=== PATIENT | male | born 1945 | race Caucasian/White ===

== ENCOUNTER → 2016-07-12 | Outpatient (CLI) | payer MEDICARE, MEDICAID ==
[~2016-07-12] MED LIST: ACET-2723 PO; BENZ1TAB7 PO; CHOL100047 PO; LORA1TAB3 PO; MAGN400O4 PO; MELO-273 PO; PROM12.510 PO; QUET50TA PO; SERT50TA12 PO; mylanta PO
--- NOTE | 2016-07-12 14:44 | STEVAL ---
Eval Subjective and History Date/Time of Eval DATE: 07/12/16 TIME: 14:16 Medical Diagnosis Oropharyngeal dysphagia (R13.12) Treatment Order: Assessment Orientations: Alert, Cooperative Primary Complaint: difficulty swallowing Pain: No Date of Onset of Primary Com: 05/17 Prior History of This Problem: Yes (chronic dysphagia) Patient's Goals: Pt was unable to express his goals. Significant Past Medical Hx: PMH: oropharyngeal dysphagia, schizophrenia, bipolar disorder, dementia, GERD w/o esophagitis and extrapyramidal movement disorder. Pt had previous MBSS in 05/17 and was placed on pureed diet with nectar (syrup) thick liquids. Medical History Form Reviewed: Yes Residence Type: Longterm ([place]) Lives With: Prior Functional Status: High risk for aspiration on dysphagia diet Current Functional Status: High risk for aspiration,no change in diet Person(s) Educated: Patient Instruction Understanding Demo: Education unsuccessful Education Comment [employer] educated patient on reasoning for evaluation. Patient was agreeable to evaluation.Results of MBSS were reviewed with pt. He did not demonstrate understanding. Subjective and History Comment: Pt was alert and cooperative but disoriented and confused. Modified Barium Swallow Lateral View Oral Phase : Lateral View Food Presentation: Thin Liquid via Spoon, Thin Liquid via Cup, Syrup liquid via spoon, Pudding via spoon Number Presentations Lat View: 3 Labial Closure: Mild Impairment (poorly coordinated) Bolus Formation Pooling L/R: Moderate Impairment Bolus Formation Under Tongue: No Impairment (WFL) Bolus Formation Scattered Loss: Moderate Impairment A/P Lingual Propulsion Spills: Minimal Impairment A/P Lingual Propulsion Delay: Moderate Impairment Lingual Movement: Moderate Impairment (reduced coordination, poor movement of bolus) Residue Clearing: Mild Impairment (on all consistencies) Premature Swallow: Moderate Impairment (thin, nectar consistencies) Other Oral Phase Observations: Pt demonstrated poor lingual coordination. Tongue was elevated when bolus introduced. Tactile stimulation applied to tongue to position it correctly for swallow. Moderate oral residue and oral delay noted on all consistencies. Palatal elevation was moderately reduced during swallow. Thermal stimulation administered to clear oral residue. Pt produced prompt, dry swallow after thermal stim. Swallow Response Delay: Mild Impairment (pudding) Base of Tongue: Moderate Impairment Epiglottic Coverage: Moderate Impairment (thin and nectar consistencies) Laryngeal Elevation: Moderate Impairment Vallecular Retention Clearing: Mild Impairment Pharyn.Wall Residue Clearing: Minimal Impairment Compensatory Strategies: Secondary Swallow, Other (thermal stimulation) Other Pharyngeal Phase Observ.: Pt demonstrated poor oral control of bolus on thin and syrup consistencies. Trace aspiration was seen on 1/3 thin swallows and 1/3 syrup swallows. Base of tongue was weak with premature swallow on thin and nectar consistencies. Laryngeal penetration was seen on 2/3 thin swallows and 3/3 on nectar. Secondary swallow was partially effective in clearing pharyngeal residue. Moderate residue was seen in valleculae after dry swallow. Thermal stimulation was applied to tongue and dry swallow produced within 2 seconds. A/P Test Performed in standing A/P View Food Presentation: Thin Liquid via Spoon, Thin Liquid via Cup, Syrup liquid via spoon, Pudding via spoon Number Presentations A/P View: 2 A/P View Vocal Cord Function: Fair A/P View Residue Found In: Valleculae Right (mild bilateral vallecular residue) , Valleculae Left, Pyriform Sinus Right (minimal), Pyriform Sinus Left (minimal ) A/P View Esophogeal Function: Slowed Clearing Esophogeal Phase Impressions: Minimal Impairment Esophoegeal Phase Summary: Delayed clearing of upper esophagus was seen on pudding consistecy. Evaluation Start Time: 13:40 Evaluation Stop Time: 14:10 Assessment/Plan of Care Speech Therapy Impressions: Pt demonstrated poor lingual coordination. Tongue was elevated when bolus introduced. Tactile stimulation applied to tongue to position it correctly for swallow. Moderate oral residue and oral delay noted on all consistencies. Palatal elevation was moderately reduced during swallow. Thermal stimulation administered to clear oral residue. Pt demonstrated poor oral control of bolus on thin and syrup consistencies. Trace aspiration was seen on 1/3 thin swallows and 1/3 syrup swallows. Base of tongue was weak with premature swallow on thin and nectar consistencies. Laryngeal penetration was seen on 2/3 thin swallows and 3/3 on nectar. Secondary swallow was partially effective in clearing pharyngeal residue. Moderate residue was seen in valleculae after dry swallow. Thermal stimulation was applied to tongue and dry swallow produced within 2 seconds. Pt produced prompt, dry swallow after thermal stim. Delayed clearing of upper esophagus was seen on pudding consistecy. evaluation with recommendations ST Treatment Plan: Evaluation Only ST Treatment Plan Frequency: N/A Treatment Plan Duration: N/A Plan of Care Comment Pt is a resident of [facility]. Recommend follow up with [employer] at [place] and continuation of pureed diet with syrup/nectar thick liquids. He may benefit from thermal stimulation. Date of Visit 07/12/16 Time Visit Began: 13:40 Time Visit Ended: 14:10 ST Assess/Plan of Care: ST Treatment Charge: MBSS Minutes of Individual Therapy: 30 GCODE Swallowing: G8996 - current Severity Modifier: CK - 40-59% Swallowing: G8997 - goal Severity Modifier: CK - 40-59% Swallowing: G8998 - d/c Severity Modifier: CK - 40-59% MARKOS VERMA MS CCC-[employer] Jul 12, 2016 14:20
--- NOTE | 2016-07-12 16:10 | DI ---
Indication:ITS.REASON: R13.19 DYSPHAGIA Procedure:MODIFIED BAR. SWALLOW STUDY MODIFIED BAR. SWALLOW STUDY: Videofluoroscopy was performed in conjunction with a delivery representative from speech pathology and a separate report and recommendations will be provided. Varying gradations of barium from thin to solid were administered. Aspiration was visualized with thin and nectar consistencies of barium. On the AP view the bolus showed no obvious preference for either side. Impression: Aspiration with thin and nectar consistencies. Please see the speech pathology report for additional details and recommendations. Fluoroscopy dose: 12.73 mGy (Cumulative air kerma) Manjinder Heath RPA/DAVID performed this under my direct supervision. .
== END ==
LOC: IMA 13:13
PROVIDERS: ATTEND Family Medicine
DX: R93.3 Abnormal findings on diagnostic imaging of other parts of digestive tract (principal); R13.19 Other dysphagia; R13.12 Dysphagia, oropharyngeal phase
CPT/HCPCS: 74230; 92611; G8996; G8997; G8998

== ENCOUNTER 2017-04-04 12:30 | Observation (INO) ==
--- NOTE | 2017-04-04 13:46 | XRay Report ---
Indication: dyspnea PROCEDURE: XR chest 2V: Encounter: Initial Comparison: None. Findings: The examination is slightly expiratory in nature. The lungs are clear. There is no focal opacity to suggest atelectasis or pneumonia. No mediastinal or hilar adenopathy. No pleural effusion. There is no significant tortuosity of the descending thoracic aorta. There is no significant degenerative changes of the thoracic spine. IMPRESSION: Negative expiratory exam. .
--- OUTSIDE RECORDS SUMMARY | 2017-04-04 13:52 | External Medical Summary | Clinical Summary ---
:1945 Author Organization [facility] Address [address] [place] [address] Phone Allergies Not on File Current Medications Not on file Active Problems Not on file Social History Tobacco Use Types Packs/Day Years Used Date Never Assessed Sex Assigned at Date Recorded Not on file Plan of Treatment Health Maintenance Due Date Last Done Comments Hepatitis C Screening 1945 DTaP,Tdap,and Td Vaccines (1 - Tdap) 1963 Colon Cancer Screening 1994 Zoster Vaccine (#1) 2004 Pneumo-Adult (1 of 2 - PCV13) 2009 Influenza Vaccine (#1) 2016 Results Not on filefrom Last 3 Months
--- NOTE | 2017-04-04 14:51 | Emergency Department Report ---
Dizziness HPI - General Chief Complaint: Dizziness Stated Complaint: irratic pulse,hypothermic Time Seen by Provider: 04/04/17 12:34 Source: patient Mode of arrival: EMS Limitations: altered mental status (dementia) - History of Present Illness HPI Narrative: He is brought to ER today for c/o dizziness, erratic heart rate, and hypothermia. He is a resident at [facility]. They had found his temp to be 92 but he is normothermic upon arrival to ER and alert. He has history of dementia and does answer questions appropriately but does go on a tangent in the conversation at times. He does report feeling dizzy this morning but denies any at this time. Denies any pain aside from his right foot which he has had a recent procedure on. MD complaint: dizziness Onset (ago): hour(s) Timing: gradual onset Description: "room spinning" Severity: moderate Associated symptoms: other (reported to be hypothermic per NH but initial temp was 98.4) - Related Data Home Medications Medication Instructions Recorded Confirmed Benztropine Mesylate 1 mg PO BID #0 tab 02/05/15 04/04/17 Meloxicam 7.5 mg PO BID #0 tab 02/05/15 04/04/17 Acetaminophen [Acetaminophen Extra 1,000 mg PO TID 04/04/17 04/04/17 Strength] Amino Acids/Protein Hydrolys 30 ml PO BID 04/04/17 04/04/17 [Pro-Stat Profile Liquid] LORazepam [Ativan] 0.5 mg PO TID 04/04/17 04/04/17 Lactose-Reduced Food [Nutritional 237 ml PO TID 04/04/17 04/04/17 Shake] Lisinopril [Prinivil] 5 mg PO DAILY 04/04/17 04/04/17 Multivit-Min/Iron Fum/Folic AC 1 tab PO DAILY 04/04/17 04/04/17 [Kgrvn-Csbjjfb-Vpqznszn Tablet] Omeprazole [Prilosec] 20 mg PO DAILY 04/04/17 04/04/17 PARoxetine HCl [Paxil] 20 mg PO DAILY 04/04/17 04/04/17 Peg 3350 238 G Bottle [Miralax] 17 gm PO DAILY 04/04/17 04/04/17 Quetiapine Fumarate [Quetiapine 200 mg PO HS 04/04/17 04/04/17 Fumarate ER] Quetiapine Fumarate [Seroquel] 100 mg PO BID 04/04/17 04/04/17 Tamsulosin [Flomax] 0.4 mg PO DAILY 04/04/17 04/04/17 Allergies Allergy/AdvReac Type Severity Reaction Status Date / Time No Known Allergies Allergy Verified 04/04/17 12:36 Review of Systems Constitutional: Denies: fever, chills, weakness ENT: Denies: ear pain, throat pain, congestion Cardiovascular: Denies: chest pain, palpitations, dyspnea on exertion, edema Respiratory: Denies: cough, dyspnea, wheezes Gastrointestinal: Denies: abdominal pain, nausea, vomiting, diarrhea Integumentary: Denies: rash Neurological: Reports: vertigo. Denies: headache, weakness, numbness, paresthesias PFS Patient Stated Medical History Dementia Yes Hypertension Yes Gastroesophageal Reflux Yes Disease Osteoarthritis Yes Bipolar Disorder Yes Depression Yes Schizophrenia Yes Clinic Medical History (Last Reviewed 02/09/17 @ 13:48 by Beth Horn MD) Vitamin B deficiency (Acute Medical) Extrapyramidal and movement disorder (Acute Medical) Osteoarthritis (Acute Medical) Vitamin D deficiency, unspecified (Acute Medical) Dysphagia (Acute Medical) Constipation (Acute Medical) Anxiety (Acute Medical) GERD (gastroesophageal reflux disease) (Acute Medical) Essential (primary) hypertension (Acute Medical) Major depressive disorder, recurrent, moderate (Acute Medical) Dementia in other diseases classified elsewhere with behavioral disturbance ( Acute Medical) Bipolar disorder (Acute Medical) Schizophrenia, unspecified (Acute Medical) Surgical History: Unknown - pt poor historian; unknown per [facility] (nurse says no surgeries since pt has been at [facility] for around 7 years) - spoke with her on 12/30/16 Family History: Family History (Last Reviewed 02/09/17 @ 13:48 by Beth Horn MD) Other Unknown family medical history - Social History Smoking status: Current every day smoker Physical Exam - Limitations Limitations: no limitations - General General appearance: alert, in no apparent distress - Normal Exams: Eyes:: Pupils are PERRLA w/ EOMI, No scleral icterus, irritation, or foreign bodies noted ENMT:: No facial trauma, nasal exudates, pharyngeal erythema, or exudates are noted Neck:: Full range of motion, without adenopathy, JVD, bruits or thyromegaly Chest/Respirations:: Clear all lo, with good airflow, and symmetry bilaterally Cardiovascular:: Regular rate and rhythm, without murmur or gallop, Pulses 2+ all extremities, capillary refill, <2 seconds all extremities Abdomen:: Bowel sounds positive, soft, non-tender, non-distended, no hepatosplenomegaly, masses or bruits noted Lymphatic:: No lymphadenopathy, or lymphedema noted Integumentary:: No rashes, hives, or bruising noted Neurological:: Patient is alert Psychiatric:: Patient exhibits, appropriate attention, emotion and affect Course Vital Signs Temperature 98.4 F 04/04/17 12:50 Pulse Rate 92 04/04/17 12:50 Respiratory Rate 20 04/04/17 12:50 Blood Pressure 114/58 04/04/17 12:50 Pulse Oximetry 93 04/04/17 12:50 Temperature 98.4 F 04/04/17 12:50 Pulse Rate 94 04/04/17 16:00 Respiratory Rate 20 04/04/17 16:00 Blood Pressure 143/67 H 04/04/17 16:00 Pulse Oximetry 95 04/04/17 16:00 Dizziness - MDM Narrative Medical decision making narrative: Labs today are negative. Did note on EKG that he appears to be in heart block. Did consult with Dr Chaves who agrees that patient is in 2nd degree block. He has an old EKG from 2015 on chart that is without a block at that time. Does recommend that patient come in for observation and does request admission to hospitalist service. Spoke with Dr Junior who will admit at this time. - Differential Diagnosis Likely: benign paroxysmal positional vertigo, orthostatic hypotension - Lab Data Attestation: I reviewed the patient's lab results. Result diagrams: 04/04/17 13:11 04/04/17 13:11 Lab Results 04/04/17 04/04/17 04/04/17 Range/Units 13:11 13:11 13:11 WBC 8.6 (4.5-11.0) T/MM3 RBC 4.14 L (4.50-5.90) M/MM3 Hgb 12.9 L (13.5-17.5) GM/DL Hct 39.0 L (41-53) % MCV 94.2 (80-100) UM3 MCH 31.2 (26-34) UUG MCHC 33.1 (31-37) GM/DL RDW Std Deviation 42.0 (36.9-50.2) FL Plt Count 164 (130-400) T/MM3 MPV 9.7 (9.4-12.4) UM3 Immature Gran % (Auto) 0.1 (0.0-0.5) % Neut % (Auto) 72.5 H (33-66) % Lymph % (Auto) 18.0 L (23-45) % [place] % (Auto) 7.0 (0-9.0) % Eos % (Auto) 1.9 (0-4) % Baso % (Auto) 0.5 (0-2) % Neut # (Auto) 6.2 (1.8-7.7) T/MM3 Lymph # (Auto) 1.5 (1-4.8) T/MM3 [place] # (Auto) 0.6 (0-0.8) T/MM3 Eos # (Auto) 0.2 (0-0.5) T/MM3 Baso # (Auto) 0.0 (0-0.2) T/MM3 Abs Immat Gran (auto) 0.01 (0.00-0.03) T/MM3 Turbidity < 20 (0-20) Sodium 132 L (134-144) MEQ/L Potassium 4.7 (3.6-5) MEQ/L Chloride 98 (98-107) MEQ/L Carbon Dioxide 25 (22-30) MEQ/L Anion Gap 9 (5-15) MEQ/L BUN 27.0 H (9-20) MG/DL Creatinine 1.2 (0.8-1.5) MG/DL GFR Calculation 60 BUN/Creatinine Ratio 23 (6-26) RATIO Glucose 87 (75-110) MG/DL Calculated Osmolality 259 L (261-280) MOSM/KG Calcium 8.6 (8.4-10.2) MG/DL Total Bilirubin 0.40 (0.20-1.30) MG/DL Icterus Index < 2 (0-7) AST 18 (17-59) U/L ALT 28 (21-72) U/L Alkaline Phosphatase 62 (38-126) U/L Troponin I 0.017 (0-0.12) ng/ml Total Protein 7.1 (6.3-8.2) G/DL Albumin 4.2 (3.5-5.0) G/DL Globulin 2.9 (2.4-3.6) G/DL Albumin/Globulin Ratio 1.4 (1.1-2.2) RATIO Plasma Lactate 1.2 (0.6-2.2) MMOL/L Procalcitonin < 0.05 NG/ML Specimen Hemolysis < 15 (0-25) Ur Collection Type Urine Color (YELLOW) Urine Clarity Urine pH (5.0-8.0) Ur Specific Hannah (1.015-1.025) Urine Protein (NEGATIVE) Urine Glucose (UA) (NEGATIVE) Urine Ketones (NEGATIVE) Urine Occult Blood (NEGATIVE) Urine Nitrate (NEGATIVE) Urine Bilirubin (NEGATIVE) Urine Urobilinogen (NORMAL) EU/DL Ur Leukocyte Esterase (NEGATIVE) Urinalysis Comment 04/04/17 Range/Units 14:22 WBC (4.5-11.0) T/MM3 RBC (4.50-5.90) M/MM3 Hgb (13.5-17.5) GM/DL Hct (41-53) % MCV (80-100) UM3 MCH (26-34) UUG MCHC (31-37) GM/DL RDW Std Deviation (36.9-50.2) FL Plt Count (130-400) T/MM3 MPV (9.4-12.4) UM3 Immature Gran % (Auto) (0.0-0.5) % Neut % (Auto) (33-66) % Lymph % (Auto) (23-45) % [place] % (Auto) (0-9.0) % Eos % (Auto) (0-4) % Baso % (Auto) (0-2) % Neut # (Auto) (1.8-7.7) T/MM3 Lymph # (Auto) (1-4.8) T/MM3 [place] # (Auto) (0-0.8) T/MM3 Eos # (Auto) (0-0.5) T/MM3 Baso # (Auto) (0-0.2) T/MM3 Abs Immat Gran (auto) (0.00-0.03) T/MM3 Turbidity (0-20) Sodium (134-144) MEQ/L Potassium (3.6-5) MEQ/L Chloride (98-107) MEQ/L Carbon Dioxide (22-30) MEQ/L Anion Gap (5-15) MEQ/L BUN (9-20) MG/DL Creatinine (0.8-1.5) MG/DL GFR Calculation BUN/Creatinine Ratio (6-26) RATIO Glucose (75-110) MG/DL Calculated Osmolality (261-280) MOSM/KG Calcium (8.4-10.2) MG/DL Total Bilirubin (0.20-1.30) MG/DL Icterus Index (0-7) AST (17-59) U/L ALT (21-72) U/L Alkaline Phosphatase (38-126) U/L Troponin I (0-0.12) ng/ml Total Protein (6.3-8.2) G/DL Albumin (3.5-5.0) G/DL Globulin (2.4-3.6) G/DL Albumin/Globulin Ratio (1.1-2.2) RATIO Plasma Lactate (0.6-2.2) MMOL/L Procalcitonin NG/ML Specimen Hemolysis (0-25) Ur Collection Type Urine, clean catch Urine Color Yellow (YELLOW) Urine Clarity Clear Urine pH 5.0 (5.0-8.0) Ur Specific Hannah <=1.005 L (1.015-1.025) Urine Protein Negative (NEGATIVE) Urine Glucose (UA) Negative (NEGATIVE) Urine Ketones Negative (NEGATIVE) Urine Occult Blood Negative (NEGATIVE) Urine Nitrate Negative (NEGATIVE) Urine Bilirubin Negative (NEGATIVE) Urine Urobilinogen 0.2 (NORMAL) EU/DL Ur Leukocyte Esterase Negative (NEGATIVE) Urinalysis Comment Microscopic not ind. - Radiology Data Attestation: I reviewed the patient's radiology results. Date of Exam: 04/04/17 Ordering Provider: Varsha Chamberlain APRN Type of Exam(s): XR chest 2V Reason for Exam(s): dyspnea Indication: dyspnea PROCEDURE: XR chest 2V: Encounter: Initial Comparison: None. Findings: The examination is slightly expiratory in nature. The lungs are clear. There is no focal opacity to suggest atelectasis or pneumonia. No mediastinal or hilar adenopathy. No pleural effusion. There is no significant tortuosity of the descending thoracic aorta. There is no significant degenerative changes of the thoracic spine. IMPRESSION: Negative expiratory exam. . Disposition Clinical Impression: Second degree AV block Disposition: To [facility] Prescriptions: No Action Benztropine Mesylate 1 mg PO BID #0 tab Meloxicam 7.5 mg PO BID #0 tab Quetiapine Fumarate [Seroquel] 100 mg PO BID Amino Acids/Protein Hydrolys [Pro-Stat Profile Liquid] 30 ml PO BID Quetiapine Fumarate [Quetiapine Fumarate ER] 200 mg PO HS PARoxetine HCl [Paxil] 20 mg PO DAILY Multivit-Min/Iron Fum/Folic AC [Iouqk-Nqaubfe-Melzpdjl Tablet] 1 tab PO DAILY Peg 3350 238 G Bottle [Miralax] 17 gm PO DAILY Tamsulosin [Flomax] 0.4 mg PO DAILY Acetaminophen [Acetaminophen Extra Strength] 1,000 mg PO TID Lactose-Reduced Food [Nutritional Shake] 237 ml PO TID LORazepam [Ativan] 0.5 mg PO TID Omeprazole [Prilosec] 20 mg PO DAILY Lisinopril [Prinivil] 5 mg PO DAILY Referrals: Adelaida Oliveira MD [Family Provider] - Time of Disposition: 16:31 - Seen By: midlevel
[2017-04-04 17:42] VITALS: BMI 32.0
--- NOTE | 2017-04-04 17:50 | History & Physical Report ---
History of Present Illness Date: 04/04/17 Chief complaint: dizzy HPI: Misael West is a 71 y/o male, resident of [facility], who was transported [place] [facility] for dizziness, irregular HR, and low temperature. He has a history of dementia and is an unreliable historian - HPI was obtained per ED records. Hypothermia was documented at [address] [facility] but temp was normal on arrival to the ED. He was found to be in 2nd deg heart block - Dr. Chaves was consulted and recommended admission under the hospitalist dept. Labs showed mild anemia (hgb 12.9), mild hyponatremia (132). CXR was negative. Misael was seen in his room on the medical floor. He has extrapyramidal movements of both upper ext and his jaw. He c/o left jaw/ear pain and reports having a hx of a surgery to this area. He is a poor historian and cannot recall exactly what happened earlier today, but agrees to having some dizziness. He has a wound to his right foot. He states that he uses a walker to ambulate. He denies chest pain, dyspnea, fever, cough or cold. He denies recent illnesses. He reports eating a normal-consistency diet and denies problems swallowing. He denies abdominal pain or GI or urinary symptoms that might be associated with his dizziness. Review of Systems ROS unobtainable: due to mental status (unreliable historian) PFSH Schizophrenia Bipolar disorder Depression Anxiety extrapyramidal disorder Dementia HTN GERD chronic pain dysphagia vitamin D deficiency OA BPH obesity BMI 32.0 Surgical History: Hernia surgery Family History: Unknown family medical history - Social History Smoking status: Former smoker Alcohol intake frequency: former alcohol drinker Current residence: [place]irement Medications Home Medications Medication Instructions Recorded Confirmed Type Benztropine Mesylate 1 mg PO BID #0 tab 02/05/15 04/04/17 History Meloxicam 7.5 mg PO BID #0 tab 02/05/15 04/04/17 History Acetaminophen [Acetaminophen Extra 1,000 mg PO TID 04/04/17 04/04/17 History Strength] Amino Acids/Protein Hydrolys 30 ml PO BID 04/04/17 04/04/17 History [Pro-Stat Profile Liquid] LORazepam [Ativan] 0.5 mg PO TID 04/04/17 04/04/17 History Lactose-Reduced Food [Nutritional 237 ml PO TID 04/04/17 04/04/17 History Shake] Lisinopril [Prinivil] 5 mg PO DAILY 04/04/17 04/04/17 History Multivit-Min/Iron Fum/Folic AC 1 tab PO DAILY 04/04/17 04/04/17 History [[id number]-[id number]-Dpkslqcc Tablet] Omeprazole [Prilosec] 20 mg PO DAILY 04/04/17 04/04/17 History PARoxetine HCl [Paxil] 20 mg PO DAILY 04/04/17 04/04/17 History Peg 3350 238 G Bottle [Miralax] 17 gm PO DAILY 04/04/17 04/04/17 History Quetiapine Fumarate [Quetiapine 200 mg PO HS 04/04/17 04/04/17 History Fumarate ER] Quetiapine Fumarate [Seroquel] 100 mg PO BID 04/04/17 04/04/17 History Tamsulosin [Flomax] 0.4 mg PO DAILY 04/04/17 04/04/17 History Allergies Allergy/AdvReac Type Severity Reaction Status Date / Time No Known Allergies Allergy Verified 04/04/17 12:36 Exam Vital Signs: Temperature 97.4 F 04/04/17 17:41 Pulse Rate 84 04/04/17 17:41 Respiratory Rate 16 04/04/17 17:41 Blood Pressure 102/67 04/04/17 17:41 Pulse Oximetry 99 04/04/17 17:41 Height/Weight/BMI: Height 1.73 m Weight 95.5 kg Body Mass Index 32.0 - Constitutional Present: no acute distress, obese - Routine HEENT Exam Head: Present: normocephalic Eye: Present: PERRL. Absent: conjunctival icterus, scleral injection ENT: Present: mucous membranes dry. Absent: dentition normal (dentures) - Routine Neck Exam Present: supple - Routine Respiratory Exam Present: CTA bilaterally - Routine Cardiovascular Exam Present: irregular rhythm - Routine Abdominal Exam Present: soft, normoactive bowel sounds, non distended, non tender - Routine Extremities Exam Present: no edema, pulses intact - Routine Skin Exam Present: warm, wounds (right foot - head of 1st MT) - Routine Neurological Exam Present: alert, moving all extremities, vision grossly intact, hearing grossly intact, tremors (EPS) - Routine Psychiatric Exam Present: cooperative Results - Labs CBC & Chem 7: 04/04/17 13:11 04/04/17 13:11 Assessment and Plan (1) Second degree AV block Current visit: Yes Status: Acute Assessment and Plan: ADMISSION DIAGNOSES Symptomatic 2nd degree heart block Hyponatremia, POA Normocytic anemia (mild) - suspect chronic Comorbid conditions Schizophrenia, Bipolar disorder, Depression, Anxiety extrapyramidal disorder Dementia HTN GERD Chronic pain Dysphagia Vitamin D deficiency OA BPH Right foot wound Obesity with BMI 32.0 PLAN Admit, observation status, under the hospitalist service. PCP: Dr. Oliveira. Code status: DNR. 2nd degree heart block -tele, trend trop -c/o left jaw pain - uncertain if this is angina equivalent -Dr. Chaves consulted -check mg and TSH Hyponatremia -NS @ 75 ml/hr Psych d/o -cont home meds -AV block not a common adverse reaction to current meds Right foot wound -wound consult [facility] home & [facility] records reviewed - very little new information. 04/04/17 - Sandi Have independently interviewed and examined pt. Chart reviewed. Case discussed with ED provider and my [employer]. Care plan developed with my supervision; agree with above. Presents to ED for evaluation of dizziness and erratic HR. Patient reports nursing said his heart was too fast and then too slow. Not feeling palpitations , but does note some SOA and congestion. Has not been feeling well in general- like he's coming down with something. Appetite has been fair. Does feel thirsty and has dry mouth-reports he 'drinks a lot and pees a lot.' Lab in ED remarkable for slight hyponatremia. EKG showing 2nd degree AV block. Placed in OBS for further cardiac evaluation and treatment. Lungs: decreased CV: regular AB: soft obese nt MSE: awake alert Plan: OBS. Tele. Serial enzymes. Cardiac consult. NS at 75cc/hr due to hyponatremia. Continue home medications. Monitor lab. SCD for DVT prevention. DVT Prophylaxis: SCD's GI Prophylaxis: other (Prilosec) Resuscitation Status: Do Not Resuscitate Hospital Course Summary Disclaimer: The visit summary below is not to be considered part of the above Progress Note. Hospital Course: 04/04/17 18:38 ADMISSION DIAGNOSES Symptomatic 2nd degree heart block Hyponatremia, POA Normocytic anemia (mild) - suspect chronic Comorbid conditions Schizophrenia, Bipolar disorder, Depression, Anxiety extrapyramidal disorder Dementia HTN GERD chronic pain dysphagia vitamin D deficiency OA BPH Right foot wound PLAN Admit, observation status, under the hospitalist service. PCP: Dr. Oliveira. Code status: DNR. 2nd degree heart block -tele, trend trop -c/o left jaw pain - uncertain if this is angina equivalent -Dr. Chaves consulted -check mg and TSH Hyponatremia -NS @ 75 ml/hr Psych d/o -cont home meds -AV block not a common adverse reaction to current meds Right foot wound -wound consult [facility] home & [facility] records reviewed - very little new information.
[2017-04-04] MEDS: NS 1,000 ML IV SCH (17:53)
[2017-04-04] MEDS: SALINE FLUSH 10ml SYRINGE IVF PRN (17:53)
[2017-04-04] MEDS: QUETIAPINE 100 MG TABLET PO SCH (19:37)
[2017-04-04] MEDS: LORazepam 0.5 MG TABLET PO SCH (21:29)
[2017-04-04] MEDS: ACETAMINOPHEN 500 MG TABLET PO SCH (21:29)
[2017-04-04 23:44] VITALS: RESP 18; O2SAT 95
[2017-04-05] MEDS: SALINE FLUSH 10ml SYRINGE IVF PRN (05:30)
[2017-04-05] MEDS ORDERED: OMEPRAZOLE 20 MG CAPSULE PO SCH (06:30)
[2017-04-05 07:26] VITALS: BP 149/75; TEMP 97
[2017-04-05] MEDS: NS 1,000 ML IV SCH (08:51)
[2017-04-05] MEDS: QUETIAPINE 100 MG TABLET PO SCH (08:51)
[2017-04-05] MEDS: ACETAMINOPHEN 500 MG TABLET PO SCH ×2 (08:51→14:13)
[2017-04-05] MEDS: LORazepam 0.5 MG TABLET PO SCH ×2 (08:52→14:13)
[2017-04-05 08:53] VITALS: PULSE 87
[2017-04-05] MEDS ORDERED: LISINOPRIL 5 MG TABLET PO SCH (09:00)
[2017-04-05] MEDS ORDERED: TAMSULOSIN 0.4 MG CAPSULE PO SCH (09:00)
[2017-04-05] MEDS ORDERED: POLYETHYL GLYCOL 3350 17gm PACKET PO SCH (09:00)
[2017-04-05] MEDS ORDERED: PAROXETINE 20 MG TABLET PO SCH (09:00)
--- NOTE | 2017-04-05 09:22 | Cardiology Consult Note ---
<Kathie Dominguez - Last Filed: 04/05/17 13:50> History of Present Illness Consult date: 04/05/17 Requesting physician: Alen Junior Chief complaint: arrhythmia History of present illness: Jude is a 71 year old male, resident of [facility], who was evaluated in the ED yesterday for dizziness, irregular HR, and low temperature. He has a history of dementia and is an unreliable historian. Upon arrival his temperature was normal, and was found to be in 2nd deg heart block - Dr. Chaves was consulted and recommended admission under the hospitalist dept. He is examined in his room on the Medical unit. He reports dizziness and feeling like he might pass out. He denies chest pain or pressure, palpitations, skipping or missing beats, or dyspnea. Review of Systems - Constitutional Constitutional: Absent: chills, fatigue, fever(s) - EENMT Eyes: Absent: change in vision Balance: Absent: vertigo Mouth/Throat: Absent: sore throat - Cardiovascular Cardiovascular: Present: syncope (near). Absent: chest pain, palpitations, edema Rhythm: Absent: abnormal rhythm - Respiratory Respiratory: Absent: cough, dyspnea, dyspnea on exertion - Gastrointestinal Gastrointestinal: Absent: abdominal pain, constipation, diarrhea, nausea, vomiting - Genitourinary Genitourinary: Absent: dysuria - Integumentary/Breasts Integumentary: Absent: rash - Neurological Neurological: Present: dizziness - Endocrine Endocrine: Absent: palpitations PFSH Patient Stated Medical History Dementia Yes Hypertension Yes Gastroesophageal Reflux Yes Disease Osteoarthritis Yes Bipolar Disorder Yes Depression Yes Schizophrenia Yes Clinic Medical History (Last Reviewed 02/09/17 @ 13:48 by Beth Horn MD) Second degree AV block (Acute Medical) Vitamin B deficiency (Acute Medical) Extrapyramidal and movement disorder (Acute Medical) Osteoarthritis (Acute Medical) Vitamin D deficiency, unspecified (Acute Medical) Dysphagia (Acute Medical) Constipation (Acute Medical) Anxiety (Acute Medical) GERD (gastroesophageal reflux disease) (Acute Medical) Essential (primary) hypertension (Acute Medical) Major depressive disorder, recurrent, moderate (Acute Medical) Dementia in other diseases classified elsewhere with behavioral disturbance ( Acute Medical) Bipolar disorder (Acute Medical) Schizophrenia, unspecified (Acute Medical) Surgical History: Hernia surgery Family History: Family History (Last Reviewed 02/09/17 @ 13:48 by Beth Horn MD) Other Unknown family medical history - Social History Smoking status: Former smoker Substance use type: does not use Alcohol intake frequency: does not drink Housing: [facility] Household members: none Current occupational status: disabled Current residence: [place] Medications Home Medications Medication Instructions Recorded Confirmed Type Benztropine Mesylate 1 mg PO BID #0 tab 02/05/15 04/04/17 History Meloxicam 7.5 mg PO BID #0 tab 02/05/15 04/04/17 History Acetaminophen [Acetaminophen Extra 1,000 mg PO TID 04/04/17 04/04/17 History Strength] Amino Acids/Protein Hydrolys 30 ml PO BID 04/04/17 04/04/17 History [Pro-Stat Profile Liquid] Lactose-Reduced Food [Nutritional 237 ml PO TID 04/04/17 04/04/17 History Shake] Lisinopril [Prinivil] 5 mg PO DAILY 04/04/17 04/04/17 History Multivit-Min/Iron Fum/Folic AC 1 tab PO DAILY 04/04/17 04/04/17 History [[id number]-[id number]-Pddqzwma Tablet] Omeprazole [Prilosec] 20 mg PO DAILY 04/04/17 04/04/17 History PARoxetine HCl [Paxil] 20 mg PO DAILY 04/04/17 04/04/17 History Peg 3350 238 G Bottle [Miralax] 17 gm PO DAILY 04/04/17 04/04/17 History Quetiapine Fumarate [Quetiapine 200 mg PO HS 04/04/17 04/04/17 History Fumarate ER] Tamsulosin [Flomax] 0.4 mg PO DAILY 04/04/17 04/04/17 History Allergies Allergy/AdvReac Type Severity Reaction Status Date / Time No Known Allergies Allergy Verified 04/04/17 12:36 Exam Vital signs: Temperature 97.0 F 04/05/17 07:25 Pulse Rate 87 04/05/17 08:00 Respiratory Rate 18 04/05/17 07:25 Blood Pressure 149/75 H 04/05/17 07:25 Pulse Oximetry 95 04/05/17 07:25 - Constitutional no acute distress, cooperative - Routine HEENT Exam Head: Present: normocephalic ENT: Present: mucous membranes moist - Routine Neck Exam Absent: JVD, carotid bruit - Routine Chest/Breast/Axilla Exam Chest wall: Absent: tenderness - Routine Respiratory Exam Present: CTA bilaterally. Absent: rales, wheezes - Routine Cardiovascular Exam Present: RRR, no murmur. Absent: JVD - Routine Abdominal Exam Present: soft, normoactive bowel sounds - Routine Extremities Exam Present: no edema - Routine Skin Exam Present: intact, dry, warm - Routine Neurological Exam Present: alert, oriented X3 - Routine Psychiatric Exam Present: normal affect Results 04/05/17 04:38 04/05/17 04:38 Cardiac Enzymes 04/04/17 04/05/17 Range/Units 17:26 04:38 Troponin I 0.020 < 0.012 (0-0.12) ng/ml CBC 04/05/17 Range/Units 04:38 WBC 7.4 (4.5-11.0) T/MM3 RBC 4.17 L (4.50-5.90) M/MM3 Hgb 13.0 L (13.5-17.5) GM/DL Hct 39.3 L (41-53) % Plt Count 156 (130-400) T/MM3 Neut # (Auto) 4.6 (1.8-7.7) T/MM3 Lymph # (Auto) 1.9 (1-4.8) T/MM3 Curry # (Auto) 0.7 (0-0.8) T/MM3 Eos # (Auto) 0.2 (0-0.5) T/MM3 Baso # (Auto) 0.0 (0-0.2) T/MM3 Comprehensive Metabolic Panel 04/05/17 Range/Units 04:38 Sodium 138 D (134-144) MEQ/L Potassium 4.3 (3.6-5) MEQ/L Chloride 105 D (98-107) MEQ/L Carbon Dioxide 25 (22-30) MEQ/L BUN 21.0 H (9-20) MG/DL Creatinine 0.9 D (0.8-1.5) MG/DL Glucose 90 (75-110) MG/DL Calcium 8.9 (8.4-10.2) MG/DL Intake and Output 04/04/17 04/05/17 04/05/17 22:59 06:59 14:59 Intake Total 650 / 650 400 / 400 1000 / 1000 Output Total 600 / 900 1900 / 1900 Balance 50 / -250 -1500 / -1500 1000 / 1000 Intake: IV 1000 / 1000 Ns 1,000 ml @ 75 mls/hr 1000 / 1000 IV .[id number] [facility] Rx#: [id number] Oral 650 / 650 400 / 400 Output: Urine 600 / 900 1900 / 1900 Other: Urine Appearance Clear Clear Urine Color Yellow Yellow Urine Odor Normal # Voids 1 # Incontinent Voids 1 Weight 210 lb 8.663 oz 206 lb 12.697 oz Patient Weight 04/06/17 06:59 Weight 206 lb 12.697 oz Laboratory Results - last 24 hr 04/04/17 04/04/17 04/04/17 13:11 13:11 13:11 WBC 8.6 RBC 4.14 L Hgb 12.9 L Hct 39.0 L MCV 94.2 MCH 31.2 MCHC 33.1 RDW Std Deviation 42.0 Plt Count 164 MPV 9.7 Immature Gran % (Auto) 0.1 Neut % (Auto) 72.5 H Lymph % (Auto) 18.0 L Curry % (Auto) 7.0 Eos % (Auto) 1.9 Baso % (Auto) 0.5 Neut # (Auto) 6.2 Lymph # (Auto) 1.5 Curry # (Auto) 0.6 Eos # (Auto) 0.2 Baso # (Auto) 0.0 Abs Immat Gran (auto) 0.01 Turbidity < 20 Sodium 132 L Potassium 4.7 Chloride 98 Carbon Dioxide 25 Anion Gap 9 BUN 27.0 H Creatinine 1.2 GFR Calculation 60 BUN/Creatinine Ratio 23 Glucose 87 Calculated Osmolality 259 L Calcium 8.6 Magnesium Total Bilirubin 0.40 Icterus Index < 2 AST 18 ALT 28 Alkaline Phosphatase 62 Troponin I 0.017 Total Protein 7.1 Albumin 4.2 Globulin 2.9 Albumin/Globulin Ratio 1.4 Plasma Lactate 1.2 Procalcitonin < 0.05 TSH Specimen Hemolysis < 15 Ur Collection Type Urine Color Urine Clarity Urine pH Ur Specific [place] Urine Protein Urine Glucose (UA) Urine Ketones Urine Occult Blood Urine Nitrate Urine Bilirubin Urine Urobilinogen Ur Leukocyte Esterase Urinalysis Comment 04/04/17 04/04/17 04/04/17 14:22 17:26 17:26 WBC RBC Hgb Hct MCV MCH MCHC RDW Std Deviation Plt Count MPV Immature Gran % (Auto) Neut % (Auto) Lymph % (Auto) Curry % (Auto) Eos % (Auto) Baso % (Auto) Neut # (Auto) Lymph # (Auto) Curry # (Auto) Eos # (Auto) Baso # (Auto) Abs Immat Gran (auto) Turbidity Sodium Potassium Chloride Carbon Dioxide Anion Gap BUN Creatinine GFR Calculation BUN/Creatinine Ratio Glucose Calculated Osmolality Calcium Magnesium 2.3 Total Bilirubin Icterus Index AST ALT Alkaline Phosphatase Troponin I 0.020 Total Protein Albumin Globulin Albumin/Globulin Ratio Plasma Lactate 1.2 Procalcitonin TSH 0.75 Specimen Hemolysis < 15 Ur Collection Type Urine, clean catch Urine Color Yellow Urine Clarity Clear Urine pH 5.0 Ur Specific [place] <=1.005 L Urine Protein Negative Urine Glucose (UA) Negative Urine Ketones Negative Urine Occult Blood Negative Urine Nitrate Negative Urine Bilirubin Negative Urine Urobilinogen 0.2 Ur Leukocyte Esterase Negative Urinalysis Comment Microscopic not ind. 04/05/17 04/05/17 04:38 04:38 WBC 7.4 RBC 4.17 L Hgb 13.0 L Hct 39.3 L MCV 94.2 MCH 31.2 MCHC 33.1 RDW Std Deviation 42.3 Plt Count 156 MPV 10.1 Immature Gran % (Auto) 0.3 Neut % (Auto) 61.1 Lymph % (Auto) 25.7 Curry % (Auto) 9.3 H Eos % (Auto) 3.2 Baso % (Auto) 0.4 Neut # (Auto) 4.6 Lymph # (Auto) 1.9 Curry # (Auto) 0.7 Eos # (Auto) 0.2 Baso # (Auto) 0.0 Abs Immat Gran (auto) 0.02 Turbidity < 20 Sodium 138 D Potassium 4.3 Chloride 105 D Carbon Dioxide 25 Anion Gap 8 BUN 21.0 H Creatinine 0.9 D GFR Calculation 83 BUN/Creatinine Ratio 23 Glucose 90 Calculated Osmolality 269 Calcium 8.9 Magnesium Total Bilirubin Icterus Index < 2 AST ALT Alkaline Phosphatase Troponin I < 0.012 Total Protein Albumin Globulin Albumin/Globulin Ratio Plasma Lactate Procalcitonin TSH Specimen Hemolysis < 15 Ur Collection Type Urine Color Urine Clarity Urine pH Ur Specific [place] Urine Protein Urine Glucose (UA) Urine Ketones Urine Occult Blood Urine Nitrate Urine Bilirubin Urine Urobilinogen Ur Leukocyte Esterase Urinalysis Comment - Imaging and Cardiology Echo: pending Imaging & Cardiology Narrative: Date of Exam: 04/04/17 Ordering Provider: Varsha Chamberlain APRN Type of Exam(s): XR chest 2V Reason for Exam(s): dyspnea Indication: dyspnea PROCEDURE: XR chest 2V: Encounter: Initial Comparison: None. Findings: The examination is slightly expiratory in nature. The lungs are clear. There is no focal opacity to suggest atelectasis or pneumonia. No mediastinal or hilar adenopathy. No pleural effusion. There is no significant tortuosity of the descending thoracic aorta. There is no significant degenerative changes of the thoracic spine. IMPRESSION: Negative expiratory exam. 04/05/17 10:02 EKG interpretations - Dysrhythmias Sinus rhythms and dysrhythmias: sinus rhythm Ventricular dysrhythmias: ventricular premature complexes - Blocks, axis, hypertrophy, ST abn AV and intraventricular conduction: 1 AV block Assessment and Plan - Assessment and Plan (1) Essential (primary) hypertension Status: Chronic (2) First degree AV block Status: Chronic No need to treat at this time, will get outpatient Holter monitor as an outpatient Echo report pending Hospital Course Summary Disclaimer: The visit summary below is not to be considered part of the above Progress Note. Hospital Course: 04/04/17 18:38 ADMISSION DIAGNOSES Symptomatic 2nd degree heart block Hyponatremia, POA Normocytic anemia (mild) - suspect chronic Comorbid conditions Schizophrenia, Bipolar disorder, Depression, Anxiety extrapyramidal disorder Dementia HTN GERD chronic pain dysphagia vitamin D deficiency OA BPH Right foot wound PLAN Admit, observation status, under the hospitalist service. PCP: Dr. Oliveira. Code status: DNR. 2nd degree heart block -tele, trend trop -c/o left jaw pain - uncertain if this is angina equivalent -Dr. Chaves consulted -check mg and TSH Hyponatremia -NS @ 75 ml/hr Psych d/o -cont home meds -AV block not a common adverse reaction to current meds Right foot wound -wound consult Nsg home & [facility] records reviewed - very little new information. <Edvin Chaves - Last Filed: 04/07/17 13:04> PENDING SALE TO [facility] Patient Stated Medical History Dementia Yes Hypertension Yes Gastroesophageal Reflux Yes Disease Osteoarthritis Yes Bipolar Disorder Yes Depression Yes Schizophrenia Yes Clinic Medical History (Last Reviewed 02/09/17 @ 13:48 by Beth Horn MD) First degree AV block (Chronic Medical) Vitamin B deficiency (Acute Medical) Extrapyramidal and movement disorder (Acute Medical) Osteoarthritis (Acute Medical) Vitamin D deficiency, unspecified (Acute Medical) Dysphagia (Acute Medical) Constipation (Acute Medical) Anxiety (Acute Medical) GERD (gastroesophageal reflux disease) (Acute Medical) Essential (primary) hypertension (Chronic Medical) Major depressive disorder, recurrent, moderate (Acute Medical) Dementia in other diseases classified elsewhere with behavioral disturbance ( Acute Medical) Bipolar disorder (Acute Medical) Schizophrenia, unspecified (Acute Medical) Family History: Family History (Last Reviewed 02/09/17 @ 13:48 by Beth Horn MD) Other Unknown family medical history Exam Vital signs: Temperature 97.0 F 04/05/17 07:25 Pulse Rate 87 04/05/17 08:00 Respiratory Rate 18 04/05/17 07:25 Blood Pressure 149/75 H 04/05/17 07:25 Pulse Oximetry 95 04/05/17 07:25 Results 04/05/17 04:38 04/05/17 04:38 Assessment and Plan - Attestation Attestation Narrative: 04/07/17 13:04 Recommendation After examining the patient I agree with the above assessment. I am involved in the formulation of the patient's plan of care. - Assessment and Plan (1) Essential (primary) hypertension Status: Chronic (2) First degree AV block Status: Chronic Hospital Course Summary Disclaimer: The visit summary below is not to be considered part of the above Progress Note.
--- NOTE | 2017-04-05 13:29 | Progress Note ---
<Diana Crump D - Last Filed: 04/05/17 13:26> - Date 04/05/17 Subjective: Misael was eating lunch, and complaining to the nurse about "rotten spots on the potatoes". When asked about dizziness, he states that he's always dizzy. He denied any chest pain or palpitations but then started telling me about his mother and a machine for him to check, and "92" - assumed he was talking about checking his pulse and he agreed. I asked him about his foot and he then relayed a story about working on a big callous - this is causing him pain. He wasn't able to tell me who did the procedure or if he has f/u. Objective Vital signs: Temperature 97.0 F 04/05/17 07:25 Pulse Rate 87 04/05/17 08:00 Respiratory Rate 18 04/05/17 07:25 Blood Pressure 149/75 H 04/05/17 07:25 Pulse Oximetry 95 04/05/17 07:25 Height/Weight/BMI: Height 1.73 m Weight 93.8 kg Body Mass Index 32.0 - Constitutional Present: no acute distress, well nourished, well developed - Routine HEENT Exam Eye: Absent: conjunctival icterus ENT: Present: mucous membranes moist, oropharynx clear - Routine Respiratory Exam Present: CTA bilaterally - Routine Cardiovascular Exam Present: RRR, S1, S2 - Routine Abdominal Exam Present: soft, normoactive bowel sounds, non distended, non tender - Routine Extremities Exam Present: no edema, pulses intact - Routine Skin Exam Present: dry, warm, wounds (right foot wound covered ) - Routine Neurological Exam Present: alert - Routine Psychiatric Exam Present: cooperative Results - Labs CBC & Chem 7: 04/05/17 04:38 04/05/17 04:38 Assessment and Plan (1) Second degree AV block Current visit: Yes Status: Acute Assessment and Plan: DIAGNOSES 1st degree heart block Hyponatremia, POA - resolved Normocytic anemia (mild) - suspect chronic Comorbid conditions Schizophrenia, Bipolar disorder, Depression, Anxiety extrapyramidal disorder Dementia HTN GERD Chronic pain Dysphagia Vitamin D deficiency OA BPH Right foot wound Obesity with BMI 32.[address] Chaves - tele reviewed - 1st deg AVB and PACs with block. OK to DC back to facility and f/u in clinic (likely needs Holter). Hyponatremia resolved. Wound care consult pending for right foot wound - after eval may dc back to facility Resuscitation Status: Do Not Resuscitate Hospital Course Summary Disclaimer: The visit summary below is not to be considered part of the above Progress Note. Hospital Course: 04/04/17: Admit, observation status, under the hospitalist service. 2nd degree heart block -tele, trend trop -c/o left jaw pain - uncertain if this is angina equivalent -Dr. Chaves consulted -check mg and TSH - normal Hyponatremia -NS @ 75 ml/hr Right foot wound -wound consult 04/05/[address] Chaves - tele reviewed - 1st deg AVB and PACs with block. OK to DC back to facility and f/u in clinic (likely needs Holter). Hyponatremia resolved. Wound care consult pending for right foot wound <Alen Junior D - Last Filed: 04/05/17 13:45> - Date 04/05/17 Objective Vital signs: Temperature 97.0 F 04/05/17 07:25 Pulse Rate 87 04/05/17 08:00 Respiratory Rate 18 04/05/17 07:25 Blood Pressure 149/75 H 04/05/17 07:25 Pulse Oximetry 95 04/05/17 07:25 Height/Weight/BMI: Height 1.73 m Weight 93.8 kg Body Mass Index 32.0 Results - Labs CBC & Chem 7: 04/05/17 04:38 04/05/17 04:38 Assessment and Plan (1) Second degree AV block Current visit: Yes Status: Acute Assessment and Plan: DIAGNOSES 1st degree heart block Hyponatremia, POA - resolved Normocytic anemia (mild) - suspect chronic Comorbid conditions Schizophrenia, Bipolar disorder, Depression, Anxiety extrapyramidal disorder Dementia HTN GERD Chronic pain Dysphagia Vitamin D deficiency OA BPH Right foot wound Obesity with BMI 32.0 Have independently interviewed and examined pt. Chart reviewed. Case discussed with CM, Dr Boogie, and my [employer]. Care plan developed with my supervision; agree with above. Doing okay today. Notes funny taste to food. Eating okay. No nausea or ab pain. Breathing well. Lungs: decreased, no distress CV: regular MSE: awake alert Plan: Dr Chaves feels cardiac status stable-no acute intervention needed at this time, but would like Holter monitor in outpatient setting. Wound evaluation pending. Will d/c IVF as taking oral well and hyponatremia resolves. Anticipate discharge to home after wound evaluations. Hospital Course Summary Disclaimer: The visit summary below is not to be considered part of the above Progress Note.
--- NOTE | 2017-04-05 14:12 | Extended Care Facility Orders ---
Admission Orders Admit to:: ICF Allergies/Adverse Reactions: Allergies No Known Allergies Allergy (Verified 04/04/17 12:36) Admitting Diagnosis: cardiac arrhythmia Admitting Physician: Alen Junior MD Attending Physician: Dr Oliveira Code Status: Do Not Resuscitate Anticiapted Length of Stay: greater than 30 days Rehab Potential: fair Rehab Prognosis: fair Diet: Regular Diet [DIET] Food Consistency: SOFT Wound/Incision Care: AquaCell AG to wound bed. Cover with gauze and tape. Change every 3 days. Keep DRY. Will need follow up in W[place] [facility] to call for apt. May use Facility Protocol or Standing Orders: Yes May have flu vaccine: Yes Correction Certification: I certify that SNF services are required to be given on an Inpatient basis because of the patients need for alf care on a continuing basis for the condition(s) for which he/she received inpatient hospital services prior to his/her transfer to the SNF. SNF inpatient care is necessary for the following reasons Indication for Correction: Not Applicable - Additional Information In Event of Arrest: Do Not Start CPR Resident is Aware of Diagnosis: No ([place] limits ) Referrals: Edvin Chaves MD [Physician] - 2 Weeks (Hospital follow up - will need Holter Monitor ) Adelaida Oliveira MD [Family Provider] - 1 Week (Medical follow up. ) Shazia Stokes [Other] (Wound Center follow up - Care faclility to call for appointment. ) Additional Orders: Follow up with Dr Oliveira in 1 week. Follow up with Dr Chaves in 2 weeks - will need holter monitor. Call for apt. Follow up in Wound Clinic for toe wound - call for apointment. Wound care: AquaCell AG to wound bed. Cover with gauze and tape. Change every 3 days. Keep DRY. Will need follow up in Wound Center at [facility] to call for apt.
--- NOTE | 2017-04-05 14:16 | Discharge Summary ---
Discharge Information Date of admission: 04/04/17 16:35 Anticipated date of discharge: 04/05/17 Attending Physician: Alen Junior MD Primary care physician: Adelaida Oliveira MD Consults: Wound Vein Clinic Consult Reason for consultation: right foot wound Physician Consult: Amirani Reason For Exam: Cardiac arrhythmia - Discharge Diagnosis (1) First degree AV block Status: Chronic Discharge diagnosis 1st degree heart block Associated conditions and complications Right foot wound Hyponatremia (POA) - resolved Normocytic anemia (mild) - suspect chronic Schizophrenia, Bipolar disorder, Depression, Anxiety Extrapyramidal disorder Dementia HTN GERD Chronic pain Dysphagia Vitamin D deficiency OA BPH Obesity with BMI 32.0 - Procedures Procedures: ECHO Cardiogram - results pending at time of discharge. - Laboratory Labs: Admit Lab 04/04/17 13:11 WBC 8.6 Hgb 12.9 L Hct 39.0 L MCV 94.2 Plt Count 164 Neut % (Auto) 72.5 H Lymph % (Auto) 18.0 L [place] % (Auto) 7.0 Eos % (Auto) 1.9 Admit Lab 04/04/17 04/04/17 13:11 13:11 Sodium 132 L Potassium 4.7 Chloride 98 Carbon Dioxide 25 Anion Gap 9 BUN 27.0 H Creatinine 1.2 GFR Calculation 60 BUN/Creatinine Ratio 23 Glucose 87 Calculated Osmolality 259 L Calcium 8.6 Total Bilirubin 0.40 AST 18 ALT 28 Alkaline Phosphatase 62 Troponin I 0.017 Total Protein 7.1 Albumin 4.2 Globulin 2.9 Albumin/Globulin Ratio 1.4 Procalcitonin < 0.05 Other Tests 04/04/17 17:26 Magnesium 2.3 TSH 0.75 04/05/17 04:38 04/05/17 04:38 - Radiology Radiology: Date of Exam: 04/04/17 PROCEDURE: XR chest 2V Findings: The examination is slightly expiratory in nature. The lungs are clear. There is no focal opacity to suggest atelectasis or pneumonia. No mediastinal or hilar adenopathy. No pleural effusion. There is no significant tortuosity of the descending thoracic aorta. There is no significant degenerative changes of the thoracic spine. IMPRESSION: Negative expiratory exam. History of Present Illness HPI: Misael West is a 71 y/o male, resident of [facility], who was transported to [facility] [place] for dizziness, irregular HR, and low temperature. He has a history of dementia and is an unreliable historian - HPI was obtained per ED records. Hypothermia was documented at 92 at [facility] [place] but temp was normal on arrival to the ED. He was found to be in 2nd deg heart block - Dr. Chaves was consulted and recommended admission under the hospitalist dept. Labs showed mild anemia (hgb 12.9), mild hyponatremia (132). CXR was negative. Misael was seen in his room on the medical floor. He has extrapyramidal movements of both upper ext and his jaw. He c/o left jaw/ear pain and reports having a hx of a surgery to this area. He is a poor historian and cannot recall exactly what happened earlier today, but agrees to having some dizziness. He has a wound to his right foot. He states that he uses a walker to ambulate. He denies chest pain, dyspnea, fever, cough or cold. He denies recent illnesses. He reports eating a normal-consistency diet and denies problems swallowing. He denies abdominal pain or GI or urinary symptoms that might be associated with his dizziness. For complete details of the H&P refer to that document. Objective Vital signs: Temperature 97.0 F 04/05/17 07:25 Pulse Rate 87 04/05/17 08:00 Respiratory Rate 18 04/05/17 07:25 Blood Pressure 149/75 H 04/05/17 07:25 Pulse Oximetry 95 04/05/17 07:25 Height/Weight/BMI: Height 1.73 m Weight 93.8 kg Body Mass Index 32.0 Hospital Course This is a general summary of the patient's hospital course. For more details refer to the complete medical record. Hospital course: 04/04/17 18:38 Admit, observation status, under the hospitalist service. PCP: Dr. Oliveira. Code status: DNR. 2nd degree heart block -tele, trend trop -c/o left jaw pain - uncertain if this is angina equivalent -Dr. Chaves consulted -check mg and TSH Hyponatremia -NS @ 75 ml/hr Psych d/o -cont home meds -AV block not a common adverse reaction to current meds Right foot wound -wound [place] [facility] [place] [facility] records reviewed - very little new information. 04/05/17 Troponin without elevation. Serum sodium improved to 138. Discussed with Dr. Chaves - tele reviewed - 1st deg AVB and PACs with pebbles. OK to DC back to facility and f/u in clinic (likely needs Holter). Wound care consult recommending AquaCell AG to wound bed covered with gauze and tape. Change every 3 days. Keep dry. Will need follow up in Wound Clinic - has not follow up for some time. Will discharge to his care facility. Medically stable. F/U with Dr Oliveira in 1 week for medical evaluation. F/U with Dr Chaves in about 2 weeks - will need Holter. Will review ECHO finding. HN to call Wound Center to arrange follow up. See orders for details. Discharge Plan - Discharge Disposition Disposition: To [facility] Home/Facility *Condition: Stable Reason For Visit (Visit label in EMR): cardiac arrhythmia - Discharge Medications *Discharge Medications: New Quetiapine [Seroquel] 100 mg PO 0900,1800 tab Continue Benztropine Mesylate 1 mg PO BID #0 tab Meloxicam 7.5 mg PO BID #0 tab Amino Acids/Protein Hydrolys [Pro-Stat Profile Liquid] 30 ml PO BID Quetiapine Fumarate [Quetiapine Fumarate ER] 200 mg PO HS PARoxetine HCl [Paxil] 20 mg PO DAILY Multivit-Min/Iron Fum/Folic AC [Qvkhl-Vqnmkef-Cpoqzghp Tablet] 1 tab PO DAILY Peg 3350 238 G Bottle [Miralax] 17 gm PO DAILY Tamsulosin [Flomax] 0.4 mg PO DAILY Acetaminophen [Acetaminophen Extra Strength] 1,000 mg PO TID Lactose-Reduced Food [Nutritional Shake] 237 ml PO TID Omeprazole [Prilosec] 20 mg PO DAILY Lisinopril [Prinivil] 5 mg PO DAILY LORazepam [Ativan] 0.5 mg PO TID #30 tab Discontinued Quetiapine Fumarate [Seroquel] 100 mg PO BID - Discharge Packet/Instructions *Diet: No added salt, soft diet *Activity: As tolerated *Pain Management/Treatment: Tylenol *Wound Care: AquaCell AG to wound bed. Cover with gauze and tape. Change every 3 days. Keep DRY. Will need follow up in W[place] [facility] call for apt. *Expected Signs/Symptoms: Improvement of foot wound. *Notify Physician if: Temp >100.4. Chest pain. *During Business Hours Contact: Nursing staff at your care facility *After Business Hours Contact: Nursing staff at your care facility. *Pending Lab/Results: No Pending Lab - Referrals/Follow Up *Referrals/Follow Up: Shazia Stokes [Other] (Wound Center follow up - Care faclility to call for appointment. ) Edvin Chaves MD [Physician] - 2 Weeks (Hospital follow up - will need Holter Monitor ) Adelaida Oliveira MD [Family Provider] - 1 Week (Medical follow up. ) - Patient Handouts - Dismissal Complete Discharge Instructions are:: Complete Attestation Narriative - Attestation Attestation Narrative: 04/05/17 14:26 I have independently interviewed and examined patient prior to discharge. See my progress note from today for details. Medically stable for discharge.
--- NOTE | 2017-04-05 19:13 | Echocardiogram ---
DATE OF PROCEDURE April 05, 2017 This is a two-dimensional echo with spectral Doppler, color-flow and M-mode. It was obtained in a patient with dizziness and arrhythmias. This is a technically difficult study. Left atrial dimension is normal. Left ventricular end-diastolic dimension is normal. Left ventricular wall thickness is normal. LV systolic function is normal with ejection fraction of about 55%. Right atrium is normal. Right ventricle is normal. Aortic root dimension is normal. Mitral valve is morphologically normal. Aortic valve shows fibrocalcific changes. Transaortic velocities are increased with peak velocity of 1.93 m/sec with peak gradient of 15 and mean gradient of 8. Aortic valve area is calculated at 1.3 cm2. There is no aortic insufficiency. Tricuspid valve shows trace of tricuspid regurgitation with normal estimated pulmonary artery systolic pressure of 24. Pulmonary valve was not visualized. There is no pericardial effusion. IMPRESSION 1. Technically difficult study. 2. Normal LV systolic function with ejection fraction of 55%. 3. Mild aortic stenosis with a valve area of 1.3 cm2. 4. Trace of tricuspid regurgitation with normal estimated pulmonary artery systolic pressure of 24. MTDD
== END 2017-04-05 14:59 ==
LOC: ED 12:30 → MED 12:30
PROVIDERS: ADMIT Hospitalist; ATTEND Hospitalist